=== PATIENT | male | born 1980 | race Caucasian/White ===

== ENCOUNTER 2020-10-27 17:10 | Inpatient (IN) ==
[2020-10-27 18:57] LABS: Albumin Level 4.3 gm/dl (3.4-5.0); BUN Creatinine Ratio 23.3 (10-20); Calcium 9.6 mg/dl (8.5-10.1); Est GFR (African American) 135.6 ml/min; Globulin 4.3 gm/dl (2.5-4.0); Total Protein 8.6 gm/dl (6.4-8.2)
[2020-10-27] MEDS ORDERED: FAMOTIDINE 20MG IV PUSH 20 MG/5 ML SYR IV STA (19:42)
[2020-10-27] MEDS ORDERED: SODIUM CHLORIDE 0.9% 1000ML 2,000 ML IV ONE (19:42)
[2020-10-27] MEDS ORDERED: ACETAMINOPHEN 1,000 MG/100 ML VIAL IV STA (19:42)
[2020-10-27] MEDS ORDERED: diphenhydrAMINE 50 MG/ML VIAL IV STA (19:44)
[2020-10-27] MEDS ORDERED: DICYCLOMINE HCL 10 MG/ML 2 ML AMP/VIAL IM ONE (19:44)
[2020-10-27] MEDS ORDERED: METOCLOPRAMIDE HCL INJ 5 MG/ML 2 ML VIAL IV STA (19:44)
[2020-10-27 20:39] LABS: Eosinophils # (auto) 0.01 K/uL (0-0.5); Eosinophils % (auto) 0.1 %; Hematocrit (blood only) 49.8 % (42-52); Immature Granulocytes # (auto) 0.02 K/uL (0.00-0.02); Immature Granulocytes % (auto) 0.1 %; Lymphocytes # (auto) 1.12 K/uL (1.2-3.4); Mean Corpuscular Hemoglobin 31.3 pg (25-34); Mean Corpuscular Hgb Conc 36.1 g/dL (32-36); Mean Corpuscular Volume 86.6 fL (80-100); Mean Platelet Volume 9.7 fL (7.4-10.4); Monocytes # (auto) 0.73 K/uL (0.11-0.59); Monocytes % (auto) 5.2 %; Neutrophils # (auto) 12.14 K/uL (1.4-6.5); Neutrophils % (auto) 86.6 %; Platelet Count 325 K/uL (130-400); RDW Standard Deviation 41.1 fL (36.4-46.3); Red Blood Count 5.75 M/uL (4.7-6.1); White Blood Count 14.02 K/uL (4.8-10.8)
[2020-10-27] MEDS ORDERED: OPTIRAY 300 100mL IV ONE (20:42)
--- NOTE | 2020-10-27 21:10 | CT Scan Report ---
CT SCAN OF THE ABDOMEN AND PELVIS WITH IV CONTRAST CLINICAL HISTORY: Generalized abdominal pain. COMPARISON STUDY: Abdominal CT dated 02/04/2007. TECHNIQUE: Following the IV administration of 88 cc of Optiray 300, CT scan of the abdomen and pelvi s is performed from the lung bases to the proximal femora. Images are reviewed in the axial, sagittal , and coronal planes. IV contrast was administered without complication. A dose lowering technique wa s utilized adhering to the principles of ALARA. Examination is degraded by streak artifact from spina l rods. CT DOSE: 324.77 mGy.cm FINDINGS: Lung bases: The heart is normal in size and without pericardial effusion. There are bibasilar airspac e opacities. No pleural effusion is seen. Liver: The contrast-enhanced liver is normal in size, contour, and attenuation. There is no intrahepa tic biliary ductal dilatation. The hepatic veins and portal veins are patent. Gallbladder: Unremarkable. Spleen: Normal in size and attenuation. Pancreas: Unremarkable. Adrenal glands: Unremarkable. Kidneys: The contrast enhanced kidneys are normal in size and without hydronephrosis. The kidneys enh ance symmetrically. Suspect a punctate nonobstructing right renal calculus. This is not well assessed due to streak artifact. Abdominal vasculature: The abdominal aorta is normal in course and caliber. Bowel: There are distended and fluid-filled loops of jejunum and proximal ileum identified in the pel vis. These measure up to 3.4 cm diameter. The distal ileum and colon are decompressed, and a complex transition point is suggested in the ventral lower abdomen/pelvis on image #257. The appearance is co nsistent with a high-grade bowel obstruction. There is fecalization of the small bowel above the luna sition point. There are several thick-walled and hyperemic small bowel loops identified in the pelvis . There is surrounding inflammatory change and interloop fluid. No pneumatosis intestinalis or portal venous gas is identified. The appendix is normal as visualized. Peritoneum: There is no intraperitoneal free air identified. Trace ascites is noted in the pelvis. Lymphadenopathy: None. Pelvic viscera: The bladder, prostate, and seminal vesicles are normal as visualized. Skeletal structures: There is thoracolumbar scoliosis with spinal rods in place. No lytic or blastic lesions are seen. IMPRESSION: 1. Findings are consistent with a high-grade small bowel obstruction with a complex transition point suggested in the ventral lower abdomen/pelvis. This may be on the basis of adhesions. Surgical consul tation is advised. 2. There are fecalized loops of small bowel above the transition point, as well as several thick-wall ed and hyperemic loops of small bowel with surrounding inflammation. These loops may be at risk for i schemia. 3. There is no intraperitoneal free air. No pneumatosis intestinalis or portal venous gas is identifi ed. 4. Interloop fluid and a small volume of pelvic ascites are likely reactive. 5. Additional findings as above. ACT 112: Negative or not required by law. Electronically signed by: Vijay Cazares M.D. 10/27/2020 9:09 PM
--- NOTE | 2020-10-27 21:49 | Emergency Department Note ---
Impression & Plan Small bowel obstruction, Leukocytosis, Nausea & vomiting, History of abdominal surgery ED Provider Note NAME: JACIEL CASE AGE: 40 SEX: M ARRIVES VIA: Walk-In INFORMANT: Patient, ED PROVIDER(S): Modesto Hopkins MD CHIEF COMPLAINT: abdominal pain, n/v PLAN: Disposition: Admit MEDICAL DECISION MAKING: The patient is a pleasant 40-year-old gentleman with a past medical history of bowel obstruction with surgical correction, chronic back pain on disability who presents to the emergency department accompanied by his mother virginia ferrera for worsening abdominal pain and persistent nausea and vomiting since yesterday. Patient reports he has been unable to keep anything down today and has had needed to induce vomiting to help relieve some of his nausea and pain. He reports having a normal bowel movement yesterday but has not moved his bowels since then. He last ate peanuts yesterday afternoon prior to onset of symptoms. Denies any recent fevers, chills, cough, congestion, urinary symptoms. He denies any known COVID-19 exposures. On arrival the patient is uncomfortable but no acute distress, afebrile with heart rate in the 110s and vital signs otherwise stable. On exam the patient does have moderate tenderness and fullness in the mid abdomen. There is no guarding or rebound. WBC 14K, nonspecific. H/H and platelets within normal limits. Chemistry without metabolic acidosis. BUN/creatinine> 20 consistent with patient's clinical dry appearance. LFTs are unremarkable. Lipase within normal limits. Covid-[address] abdomen pelvis was performed and demonstrates findings consistent with bowel obstruction and suggestive of high-grade bowel obstruction. I did review the findings with the patient his mother at the bedside. They did agree to proceed with plan for NG tube and surgery consultation. Case was discussed with general surgeryEnio PAC with Dr. Grijalva, general surgery on-call. Upon their evaluation at the bedside they will admit the patient for further management. Triage Nursing notes reviewed and agree them. Prior medical records reviewed Vital Signs: reviewed and remarkable for tachycardia. Differential diagnosis: Appendicitis, testicular torsion, infections, diverticulitis, UTI, obstruction, mesenteric ischemia, aortic pathology, inflammatory bowel disease, renal colic, PUD, pancreatitis, biliary pathology, hernia, volvulus, constipation, as well as other pathologies. ER treatment provided: See below. Diagnostics interpreted by me: Cardiac Monitoring: An order for continuous cardiac monitoring was placed and demonstrated Sinus tachycardia, 117 bpm, no ectopy. Laboratory studies: See below Imaging studies: See below Consultation(s): Enio Esteban PAC with Dr. Grijalva, general surgery on-call HPI: The patient is a pleasant 40-year-old gentleman with a past medical history of bowel obstruction with surgical correction, chronic back pain on disability who presents to the emergency department accompanied by his mother concern for worsening abdominal pain and persistent nausea and vomiting since yesterday. Patient reports he has been unable to keep anything down today and has had needed to induce vomiting to help relieve some of his nausea and pain. He reports having a normal bowel movement yesterday but has not moved his bowels since then. He last ate peanuts yesterday afternoon prior to onset of symptoms. Denies any recent fevers, chills, cough, congestion, urinary symptoms. He denies any known COVID-19 exposures. ROS: See above HPI for pertinent positives & negatives. A total of 10 systems reviewed and were otherwise negative. PAST MEDICAL HISTORY:See Below PAST SURGICAL HISTORY:See Below FAMILY HISTORY:See Below SOCIAL HISTORY:See Below HOME MEDICATIONS:See Below ALLERGIES:See Below VITALS:See Below PHYSICAL EXAMINATION: GENERAL: Awake, alert, uncomfortable-appearing, in no distress HENT: Normocephalic, atraumatic. Oropharynx with dry mucous membranes and otherwise unremarkable. EYES: Normal conjunctiva. Sclera non-icteric. NECK: Supple. No nuchal rigidity. FROM. No JVD. RESPIRATORY: Clear to auscultation. CARDIAC: Tachycardic rate, normal rhythm. Extremities warm and well perfused. Pulses equal. ABDOMEN: Moderate tenderness and fullness in the mid abdomen. No guarding or rebound. RECTAL: Deferred. MUSCULOSKELETAL: Chest examination reveals no tenderness. The back is symmetrical on inspection without obvious abnormality. There is no CVA tenderness to palpation. No joint edema. LOWER EXTREMITIES: Calves are equal size bilaterally and non-tender. No edema. No discoloration. NEURO: Normal sensorium. No sensory or motor deficits noted. SKIN: No rash or jaundice noted. ED COURSE: Critical Care: I have personally spent greater than 35 minutes of critical care time in the direct management of this patient. This includes bedside care, interpretation of diagnostic studies, and testing, discussion with consultants, patient, and family members, and other required patient management activities. This 35 minutes is in excess of all separately billable procedures. Modesto Hopkins MD Past Med/Surg History Medical History Chronic back pain History of small bowel obstruction As a per patient and his mother. Surgical History H/O abdominal surgery Social History Smoking Status: Current every day smoker Cigarettes Per Day: 18; Hx Alcohol Use: Yes Hx Substance Use: No Preferred Language: Swedish Communication Ability: Effective Metal Solderer Required: No Beliefs That Will Affect Care: None Current Living Situation: Alone Other Information That Helps Us Care for You: No Feels Safe at Home: Yes Safety Concerns: Feels Safe At This Time Assistive Devices: None Allergies Allergies Allergy/AdvReac Type Severity Reaction Status Date / Time morphine AdvReac Intermediate HALLUCINATI Verified 10/27/20 19:42 ONS Home Meds Home Medications Medication Instructions Recorded Confirmed ibuprofen 400 mg PO Q6H PRN 10/27/20 10/27/20 multivit with min-folic acid 1 tab PO DAILY 10/27/20 10/27/20 [Multivitamin Gummies] Results & Data (ED) Vital Signs Vital Signs - 24 hr 10/27/20 17:11 Temperature 36.5 C Temperature Source Temporal Artery Scan Pulse Rate 117 H Respiratory Rate 18 Respiratory Depth Normal Blood Pressure 147/99 H Blood Pressure Mean 115 Pulse Oximetry 99 Oxygen Delivery Method Room Air Sepsis Recent Fever Within 48 Hours No Sepsis New/Unexplained Change in Mental Status N/A Sepsis Action Taken by Nursing No Action Required Laboratory Data Attestation: I reviewed the patient's lab results. Result diagrams: 10/27/20 20:13 10/27/20 18:27 Lab Results 10/27/20 10/27/20 10/27/20 Range/Units 18:27 20:13 21:23 WBC 14.02 H (4.8-10.8) K/uL RBC 5.75 (4.7-6.1) M/uL Hgb 18.0 (14.0-18.0) g/dL Hct 49.8 (42-52) % MCV 86.6 (80-100) fL MCH 31.3 (25-34) pg MCHC 36.1 H (32-36) g/dL RDW Std Deviation 41.1 (36.4-46.3) fL RDW Coeff of Vonnie 13.0 (11.5-14.5) % Plt Count 325 (130-400) K/uL MPV 9.7 (7.4-10.4) fL Immature Gran % (Auto) 0.1 % Neut % (Auto) 86.6 % Lymph % (Auto) 8.0 % [place] % (Auto) 5.2 % Eos % (Auto) 0.1 % Baso % (Auto) 0.0 % Neut # (Auto) 12.14 H (1.4-6.5) K/uL Lymph # (Auto) 1.12 L (1.2-3.4) K/uL [place] # (Auto) 0.73 H (0.11-0.59) K/uL Eos # (Auto) 0.01 (0-0.5) K/uL Baso # (Auto) 0.00 (0-0.2) K/uL Immature Gran # (Auto) 0.02 (0.00-0.02) K/uL Sodium 134 L (136-145) mmol/L Potassium (3.5-5.1) mmol/L Chloride 101 (98-107) mmol/L Carbon Dioxide 24 (21-32) mmol/L Anion Gap 9.0 (3-11) BUN 17 (7-18) mg/dl Creatinine 0.74 (0.6-1.4) mg/dl Est Cr Clr Drug Dosing 134.0 ml/min Est GFR ( Amer) 135.6 ml/min Est GFR (Non-Af Amer) 117.0 ml/min BUN/Creatinine Ratio 23.3 H (10-20) Glucose 107 H (70-99) mg/dl Calcium 9.6 (8.5-10.1) mg/dl Total Bilirubin 1.0 (0.2-1) mg/dl AST (15-37) U/L ALT 37 (12-78) U/L Alkaline Phosphatase 104 (45-117) U/L Total Protein 8.6 H (6.4-8.2) gm/dl Albumin 4.3 (3.4-5.0) gm/dl Globulin 4.3 H (2.5-4.0) gm/dl Albumin/Globulin Ratio 1.0 (0.9-2) Lipase 73 (73-393) U/L COVID-19 Eval Order Covid19 at [facility] SARS-CoV-2 (PCR) (Negative) 10/27/20 Range/Units 21:23 WBC (4.8-10.8) K/uL RBC (4.7-6.1) M/uL Hgb (14.0-18.0) g/dL Hct (42-52) % MCV (80-100) fL MCH (25-34) pg MCHC (32-36) g/dL RDW Std Deviation (36.4-46.3) fL RDW Coeff of Vonnie (11.5-14.5) % Plt Count (130-400) K/uL MPV (7.4-10.4) fL Immature Gran % (Auto) % Neut % (Auto) % Lymph % (Auto) % [place] % (Auto) % Eos % (Auto) % Baso % (Auto) % Neut # (Auto) (1.4-6.5) K/uL Lymph # (Auto) (1.2-3.4) K/uL [place] # (Auto) (0.11-0.59) K/uL Eos # (Auto) (0-0.5) K/uL Baso # (Auto) (0-0.2) K/uL Immature Gran # (Auto) (0.00-0.02) K/uL Sodium (136-145) mmol/L Potassium (3.5-5.1) mmol/L Chloride (98-107) mmol/L Carbon Dioxide (21-32) mmol/L Anion Gap (3-11) BUN (7-18) mg/dl Creatinine (0.6-1.4) mg/dl Est Cr Clr Drug Dosing ml/min Est GFR ( Amer) ml/min Est GFR (Non-Af Amer) ml/min BUN/Creatinine Ratio (10-20) Glucose (70-99) mg/dl Calcium (8.5-10.1) mg/dl Total Bilirubin (0.2-1) mg/dl AST (15-37) U/L ALT (12-78) U/L Alkaline Phosphatase (45-117) U/L Total Protein (6.4-8.2) gm/dl Albumin (3.4-5.0) gm/dl Globulin (2.5-4.0) gm/dl Albumin/Globulin Ratio (0.9-2) Lipase (73-393) U/L COVID-19 Eval Order SARS-CoV-2 (PCR) NEGATIVE (Negative) Administered Medications Lactated Ringer's (Lr) 1,000 mls @ 125 mls/hr IV .Q8H ALIDA Stop: 11/26/20 22:29 Last Admin: 10/28/20 00:31 Dose: 125 mls/hr Documented by: [id number] Ondansetron HCl (Ondansetron Inj 2 Mg/Ml 2 Ml Vial) 4 mg IV Q6H PRN PRN Reason: Nausea And Vomiting Stop: 11/26/20 22:19 Last Admin: 10/27/20 23:27 Dose: 4 mg Documented by: [id number] Discontinued Medications Dicyclomine HCl (Dicyclomine Hcl 10 Mg/Ml 2 Ml Amp/Vial) 20 mg IM NOW ONE Stop: 10/27/20 19:45 Last Admin: 10/27/20 20:08 Dose: 20 mg Documented by: [id number] Diphenhydramine HCl (Diphenhydramine 50 Mg/Ml Vial) 25 mg IV NOW STA Stop: 10/27/20 19:45 Last Admin: 10/27/20 20:08 Dose: 25 mg Documented by: [id number] Sodium Chloride (Nss 1000ml) 2,000 mls @ 999 mls/hr IV .Q2H1M ONE Stop: 10/27/20 21:42 Last Infusion: 10/28/20 00:25 Dose: 0 mls/hr Documented by: [id number] Admin: 10/27/20 20:08 Dose: 999 mls/hr Documented by: [id number] Acetaminophen (Ofirmev) 1,000 mg in 100 mls @ 400 mls/hr IV NOW STA Stop: 10/27/20 19:56 Last Infusion: 10/27/20 20:22 Dose: 0 mls/hr Documented by: [id number] Admin: 10/27/20 20:07 Dose: 400 mls/hr Documented by: [id number] Famotidine (Pepcid 20mg Iv Push) 20 mg in 5 mls @ 2.5 mls/min IV NOW STA Stop: 10/27/20 19:43 Last Admin: 10/27/20 20:08 Dose: 2.5 mls/min Documented by: [id number] Ioversol (Optiray 300 100ml) 89 ml IV ONCE ONE Stop: 10/27/20 20:43 Last Admin: 10/27/20 20:43 Dose: 100 ml Documented by: [id number] Metoclopramide HCl (Metoclopramide Hcl Inj 5 Mg/Ml 2 Ml Vial) 10 mg IV NOW STA Stop: 10/27/20 19:45 Last Admin: 10/27/20 20:08 Dose: 10 mg Documented by: [id number] Imaging Data Radiologist's Impression: Abdomen/Pelvis CT 10/27/20 19:45 CT SCAN OF THE ABDOMEN AND PELVIS WITH IV CONTRAST CLINICAL HISTORY: Generalized abdominal pain. COMPARISON STUDY: Abdominal CT dated 02/04/2007. TECHNIQUE: Following the IV administration of 88 cc of Optiray 300, CT scan of the abdomen and pelvis is performed from the lung bases to the proximal femora. Images are reviewed in the axial, sagittal, and coronal planes. IV contrast was administered without complication. A dose lowering technique was utilized adhering to the principles of ALARA. Examination is degraded by streak artifact from spinal rods. CT DOSE: 324.77 mGy.cm FINDINGS: Lung bases: The heart is normal in size and without pericardial effusion. There are bibasilar airspace opacities. No pleural effusion is seen. Liver: The contrast-enhanced liver is normal in size, contour, and attenuation. There is no intrahepatic biliary ductal dilatation. The hepatic veins and portal veins are patent. Gallbladder: Unremarkable. Spleen: Normal in size and attenuation. Pancreas: Unremarkable. Adrenal glands: Unremarkable. Kidneys: The contrast enhanced kidneys are normal in size and without hydronephrosis. The kidneys enhance symmetrically. Suspect a punctate nonobstructing right renal calculus. This is not well assessed due to streak artifact. Abdominal vasculature: The abdominal aorta is normal in course and caliber. Bowel: There are distended and fluid-filled loops of jejunum and proximal ileum identified in the pelvis. These measure up to 3.4 cm diameter. The distal ileum and colon are decompressed, and a complex transition point is suggested in the ventral lower abdomen/pelvis on image #257. The appearance is consistent with a high-grade bowel obstruction. There is fecalization of the small bowel above the transition point. There are several thick-walled and hyperemic small bowel loops identified in the pelvis. There is surrounding inflammatory change and interloop fluid. No pneumatosis intestinalis or portal venous gas is identified. The appendix is normal as visualized. Peritoneum: There is no intraperitoneal free air identified. Trace ascites is noted in the pelvis. Lymphadenopathy: None. Pelvic viscera: The bladder, prostate, and seminal vesicles are normal as visualized. Skeletal structures: There is thoracolumbar scoliosis with spinal rods in place. No lytic or blastic lesions are seen. IMPRESSION: 1. Findings are consistent with a high-grade small bowel obstruction with a complex transition point suggested in the ventral lower abdomen/pelvis. This may be on the basis of adhesions. Surgical consultation is advised. 2. There are fecalized loops of small bowel above the transition point, as well as several thick-walled and hyperemic loops of small bowel with surrounding inflammation. These loops may be at risk for ischemia. 3. There is no intraperitoneal free air. No pneumatosis intestinalis or portal venous gas is identified. 4. Interloop fluid and a small volume of pelvic ascites are likely reactive. 5. Additional findings as above. ACT 112: Negative or not required by law. Electronically signed by: Vijay Cazares M.D. 10/27/2020 9:09 PM Discharge Plan Visit Data Chief Complaint: Abdominal Pain Stated Complaint: ABDOMINAL PAIN ED Provider: Modesto Hopkins Discharge Problem: Small bowel obstruction, Leukocytosis, Nausea & vomiting, History of abdominal surgery Patient Disposition: Admitted As Inpatient Discharge Instructions Interventions: ED Discharge Assessment Last Done: 10/27/20 23:16 Discharge Problem: Leukocytosis Qualifiers: Leukocytosis type: unspecified Qualified Code(s): D72.829 - Elevated white blood cell count, unspecified Nausea & vomiting Qualifiers: Vomiting type: unspecified Vomiting Intractability: intractable Qualified Code(s): R11.2 - Nausea with vomiting, unspecified
--- NOTE | 2020-10-27 22:16 | History & Physical Report ---
Date of Service October 27, 2020 Assessment & Plan (1) Small bowel obstruction: The patient has a small bowel obstruction. I suspect the small bowel obstruction is likely on the basis of adhesions from previous surgery. Due to his clinical presentation and imaging he will be admitted to the hospital and we will proceed as follows: Patient will be kept n.p.o. We will provide IV fluid for hydration We will provide antiemetics We will provide analgesics Place an NG tube in place this to low continuous suction We will check a KUB in the morning We will follow serial labs We had a lengthy discussion with the patient at the bedside outlining conservative treatment for small bowel obstruction with the measures noted above. We have discussed with him that if his clinical status deteriorates and conservative measures fail he may require surgical intervention. He did express his understanding and had all of his questions answered For the present time we will use SCDs for DVT prevention. Hold on chemical means until we are certain patient will not require operative intervention. History of Present Illness Chief Complaint: Abdominal pain, nausea and vomiting Primary Care Provider: NO PCP Is a 40-year-old male who presented [facility] emergency department secondary to periumbilical abdominal pain along with nausea and vomiting that began approximate 24 hours ago. Patient notes that he had a history of small bowel obstruction as an that required resection of a portion of the small bowel. He notes he has not had any other issues concerning this problem until his current presentation. Patient symptoms began approximate 24-hours ago as stated above. Patient notes that he has generalized achy abdominal pain in the periumbilical area that is alleviated when he self induces vomiting. He does note that the pain seems to be somewhat worse when he lies down and sits up. He notes that for the past 24 hours he has only had 1 small bowel movement and is not passing any flatus. He has not had any meaningful oral intake since yesterday. In the emergency department patient had labs and imaging which were independently reviewed by myself. CT scan of the abdomen showed concern for high-grade bowel obstruction with fecalization of material in the small bowel proximal to this obstruction. There is no evidence of free air, pneumatosis intestinalis, or portal venous gas. CBC reveals white blood cell count was 14, hemoglobin, hematocrit, and platelet count are all within normal range. Ch emistry profile revealed his sodium is 134. Potassium level could not be ascertained as the specimen was hemolyzed. His BUN and creatinine were noted to be within normal range. A Covid test has been ordered and is pending. At the time of my exam the patient was resting in bed he was in no distress Allergies Allergy/AdvReac Type Severity Reaction Status Date / Time morphine AdvReac Intermediate HALLUCINATI Verified 10/27/20 19:42 ONS Home Medications Medication Instructions Recorded Confirmed Type ibuprofen 400 mg PO Q6H PRN 10/27/20 10/27/20 History multivit with min-folic acid 1 tab PO DAILY 10/27/20 10/27/20 History [Multivitamin Gummies] Past Med/Surg History Medical History Chronic back pain History of small bowel obstruction As a per patient and his mother. Surgical History H/O abdominal surgery Social History Smoking Status: Current every day smoker Feels Safe at Home: Yes Review of Systems Constitutional: no fever and no chills Eyes: no diplopia Ear, Nose, Mouth, Throat: no ear pain Respiratory: no cough and no dyspnea Cardiovascular: no chest pain Gastrointestinal: + nausea, + vomiting and + constipation; no abdominal pain Genitourinary: no dysuria Musculoskeletal: no back pain Integumentary: no rash Neurologic: no localized weakness Physical Exam Constitutional: well developed and well nourished; no acute distress Eyes: no conjunctival abnormality ENMT: Ears: no hearing impairment Neck: trachea midline Respiratory: normal respiratory effort, lungs clear to auscultation Cardiovascular: Rate/Rhythm: regular rate and regular rhythm Gastrointestinal (Abdomen): Administer soft without significant distention or tympany to percussion. Patient does have some mild pain with palpation greatest in the periumbilical area. No rebound tenderness or guarding. There are no palpable hernias. Patient does have a well-healed midline incision near his umbilicus. Musculoskeletal: No calf tenderness noted. There is digital clubbing noted of his fingers. Skin: no rashes, warm and dry Neurologic: moves all extremities Psychiatric: Orientation: alert and oriented x 3 Affect: + flat affect Results & Data Results & Data (MN) Vital Signs (Past 12 Hours) Vital Signs Temp Pulse Resp BP Pulse Ox 10/27/20 17:11 36.5 C 117 H 18 147/99 H 99 Supervising Physician Co-Signing Physician Notes Patient seen and examined, labs and imaging reviewed, agree with above. 40-year-old male with history of laparotomy and bowel resection as a for obstruction, presents to the emergency department with 24 hours of abdominal pain and vomiting. No prior episodes. On exam he is afebrile with stable vitals. His abdomen is soft, moderately distended, mildly tender to palpation with no guarding or rebound. He does have a surgical scar in the left paramedian position. Labs with WBC 14, otherwise unremarkable. CT shows bowel obstruction with some thickened loops of bowel, fecalization, and some interloop edema consistent with a small bowel obstruction. Small bowel obstruction We will proceed with nonoperative management Patient will be admitted to the MedSurg [facility], NG tube placed Repeat KUB in the morning Diagnosis and plan of care discussed the patient, all questions are answered, the patient expressed understanding agrees the plan of care as stated PG Care Time/CCT Total # of Minutes Spent Total Time Spent with Patient: Total time spent is greater than 50% in coordination of care (as documented) at patient's floor/unit and/or counseling patient: Coding Level of Care Code 81791 Initial Inpt Care Lvl 3 Diagnoses Small bowel obstruction K56.609
[2020-10-27] MEDS ORDERED: ONDANSETRON INJ 2 MG/ML 2 ML VIAL IV PRN (22:20)
[2020-10-28] MEDS ORDERED: ACETAMINOPHEN 1,000 MG/100 ML VIAL IV PRN (00:24)
[2020-10-28] MEDS: LACTATED RINGER'S 1,000 ML IV SCH ×3 (00:31→16:51)
[2020-10-28 06:19] LABS: Eosinophils # (auto) 0.03 K/uL (0-0.5); Eosinophils % (auto) 0.3 %; Hematocrit (blood only) 47.8 % (42-52); Hemoglobin 17.1 g/dL (14.0-18.0); Immature Granulocytes # (auto) 0.02 K/uL (0.00-0.02); Immature Granulocytes % (auto) 0.2 %; Lymphocytes # (auto) 1.23 K/uL (1.2-3.4); Lymphocytes % (auto) 10.7 %; Mean Corpuscular Hemoglobin 30.8 pg (25-34); Mean Corpuscular Volume 86.1 fL (80-100); Mean Platelet Volume 9.6 fL (7.4-10.4); Monocytes # (auto) 0.97 K/uL (0.11-0.59); Monocytes % (auto) 8.4 %; Neutrophils # (auto) 9.28 K/uL (1.4-6.5); Neutrophils % (auto) 80.4 %; Platelet Count 329 K/uL (130-400); RDW Standard Deviation 41.2 fL (36.4-46.3); Red Blood Count 5.55 M/uL (4.7-6.1); White Blood Count 11.53 K/uL (4.8-10.8)
[2020-10-28 06:23] LABS: Mean Corpuscular Hgb Conc 35.8 g/dL (32-36)
[2020-10-28 06:36] LABS: BUN Creatinine Ratio 23.1 (10-20); Calcium 8.6 mg/dl (8.5-10.1); Creatinine Clr Calc Pharmacy 148.8 ml/min; Est GFR (African American) 142.1 ml/min; Est GFR (Non-African American) 122.6 ml/min; Potassium 3.9 mmol/L (3.5-5.1)
--- NOTE | 2020-10-28 07:12 | XRay Report ---
KUB HISTORY: Follow-up study in a patient with small bowel obstruction sbo COMPARISON: KUB 10/27/2020, CT abdomen pelvis 10/27/2020 FINDINGS: Distal tip of enteric tube is projected superiorly within the gastric fundus. There are per sistent dilated air-filled loops of small bowel measuring up to approximately 3 cm. Air is also noted within the large bowel. Contrast within the urinary bladder lumen. Extensive thoracolumbar spinal fu kaushal with lumbar levoscoliosis. No urolith or pneumoperitoneum identified. IMPRESSION: 1. Distal tip of enteric tube projects superiorly within the region of the gastric fundus. 2. Persistent small bowel obstruction without pneumoperitoneum. ACT 112: Negative or not required by law. The above report was generated using voice recognition software. It may contain grammatical, syntax o r spelling errors. Electronically signed by: Pavan Gonzalez M.D. 10/28/2020 7:11 AM
--- NOTE | 2020-10-28 07:12 | XRay Report ---
KUB HISTORY: NG tube placement COMPARISON: Abdomen and pelvis CT 10/27/2020. FINDINGS: A nasogastric tube terminates in the fundus of the stomach. Contrast within the renal colle cting systems from the recent CT examination. Dilated gas-filled loop of small bowel within the midab domen consistent with the patient's known small bowel obstruction. This measures up to 3.2 cm in diam eter. This is similar to the prior study. Thoracolumbar spinal rods are again noted. No renal calcul i. No ureteral calculi. No pneumoperitoneum or pneumatosis. IMPRESSION: 1. Nasogastric tube terminates in the fundus of the stomach. 2. Persistent small bowel structure and pattern. ACT 112: Negative or not required by law. Electronically signed by: Misbah Sewell M.D. 10/28/2020 7:11 AM
--- NOTE | 2020-10-28 07:50 | Surgery Progress Note ---
Date of Service October 28, 2020 Assessment & Plan (1) Small bowel obstruction: Patient here with SBO, h/o bowel resection as an infant WBC 11.5, Cr: 0.66, VSS Abdomen soft, some discomfort noted to palpation in mid and L side of abdomen Remains with some abdominal discomfort and mild nausea, but says it's overall improved since yesterday NGT 200cc document Plan to keep NGT in place while awaiting return of bowel function and ongoing improvement in pt's symptoms Admission and Anticipated Discharge Date Admission Date: October 27, 2020 Supervising Physician Co-Signing Physician Notes Patient seen and examined, x-ray reviewed, agree with above. 40-year-old male admitted with high-grade small bowel obstruction, proceeding with conservative management. Since having NG tube placed he states he has less abdominal distention and discomfort. No more vomiting. He has not passed flatus or had a bowel movement yet. On exam he is afebrile with stable vitals. Abdomen is soft, less tender than yesterday, slightly less distended. KUB shows persistent small bowel obstruction. We will continue with nonoperative management at this time. We will consider oral contrasted study in the next few days if he does not show signs of improvement. Subjective Patient says he is feeling okay. Still has some abdominal discomfort and some mild nausea, but says it's improved from yesterday. No flatus/BM at this time. Physical Exam Physical Exam: awake/alert Constitutional: no acute distress Respiratory: normal respiratory effort Gastrointestinal (Abdomen): Percussion/Palpation: + abdomen tender (mild discomfort to palpation in the mid abdomen and left sided abd) and abdomen soft NGT with clear/lightly blood tinged output (200cc) Results & Data ([facility]) Vital Signs (Past 12 Hours) Vital Signs Temp Pulse Resp BP Pulse Ox 10/28/20 00:15 36.7 C 96 H 16 159/97 H 98 10/27/20 22:53 104 H 16 143/86 H 98 PG Care Time/CCT Total # of Minutes Spent Total Time Spent with Patient: Total time spent is greater than 50% in coordination of care (as documented) at patient's floor/unit and/or counseling patient: Coding Level of Care Code 91385 Subseq Hosp Care Lvl 1 Diagnoses Small bowel obstruction K56.609
[2020-10-29] MEDS: LACTATED RINGER'S 1,000 ML IV SCH ×4 (00:39→23:20)
--- NOTE | 2020-10-29 08:47 | XRay Report ---
KUB HISTORY: eval bowel gas pattern for small bowel obstruction. NG tube placement. COMPARISON: KUB 10/28/2020. FINDINGS: The nasogastric tube is looped within the stomach with the tip terminating at the gastric f undus. No change in the mildly dilated gas-filled loops of small bowel within the midabdomen. These m easure up to 3.8 cm in diameter. Nondistended colon. Mild S-shaped scoliosis of the thoracolumbar spi ne with associated spinal rods. Stable punctate right renal calculus. No pneumoperitoneum or pneumat osis. IMPRESSION: 1. No change in position of the nasogastric tube which terminates at the fundus of the stomach. 2. Persistent small bowel obstruction pattern. ACT 112: Negative or not required by law. Electronically signed by: Misbah Sewell M.D. 10/29/2020 8:46 AM
--- NOTE | 2020-10-29 10:36 | Surgery Progress Note ---
Date of Service October 29, 2020 Assessment & Plan (1) Small bowel obstruction: Patient here with SBO, h/o bowel resection as an infant Patient feeling similar to yesterday, mild abdominal discomfort and discomfort related to NGT KUB this AM revealed persistent SBO NGT documented 250cc/24hours He is starting to pass some flatus. We will keep NGT in for today while awaiting further return of bowel function If no continued progress we may consider a contrast study in the next 24 hours We offered patient a nicotine patch for his smoking withdrawal, but he declined at this time Admission and Anticipated Discharge Date Admission Date: October 27, 2020 Supervising Physician Co-Signing Physician Notes Patient seen and examined, labs and image reviewed, agree with above. 40-year-old male with history of bowel surgery as a now with small bowel obstruction likely secondary to adhesions. Feels slightly better today than yesterday, and much better than he did upon admission. He has passed a very small amount of flatus. He does feel hungry. The pain and tenderness he had on admission are improving. On exam he is afebrile with stable vitals. His abdomen is soft, mildly distended, mildly tender to palpation which is improved from yesterday. His KUB shows a persistent small bowel obstruction, however clinically he is improving. We will continue to manage nonoperatively. If he fails to make progress over the next few days we will order a contrasted study to further evaluate. Subjective Patient says he is feeling about the same as yesterday. Mild abdominal discomfort, but this is improved since admission. When asked if he is having any nausea, he says yes, but believes it's related to the NGT. He passed a small amount of flatus this AM. No BM yet. He says he is starting to feel a little agitated because he wants so smoke a cigarette. Physical Exam Physical Exam: awake/alert Constitutional: no acute distress Gastrointestinal (Abdomen): Inspection/Auscultation: + abdomen distended (softly distended) Percussion/Palpation: + abdomen tender (mild discomfort to palpation over mid and left mid abdomen) and abdomen soft Results & Data ([facility]) Vital Signs (Past 12 Hours) Vital Signs Temp Pulse Resp BP BP Pulse Ox 10/29/20 07:16 36.8 C 65 16 136/77 99 10/28/20 23:16 37.2 C 78 15 154/77 H 98 PG Care Time/CCT Total # of Minutes Spent Total Time Spent with Patient: Total time spent is greater than 50% in coordination of care (as documented) at patient's floor/unit and/or counseling patient: Coding Level of Care Code 00983 Subseq Hosp Care Lvl 1 Diagnoses Small bowel obstruction K56.609
[2020-10-30] MEDS: LACTATED RINGER'S 1,000 ML IV SCH (03:35)
[2020-10-30 06:21] LABS: Basophils # (auto) 0.01 K/uL (0-0.2); Basophils % (auto) 0.2 %; Eosinophils # (auto) 0.07 K/uL (0-0.5); Eosinophils % (auto) 1.1 %; Hematocrit (blood only) 40.1 % (42-52); Hemoglobin 14.2 g/dL (14.0-18.0); Immature Granulocytes # (auto) 0.01 K/uL (0.00-0.02); Immature Granulocytes % (auto) 0.2 %; Lymphocytes # (auto) 1.91 K/uL (1.2-3.4); Lymphocytes % (auto) 30.5 %; Mean Corpuscular Hgb Conc 35.4 g/dL (32-36); Mean Corpuscular Volume 87.6 fL (80-100); Mean Platelet Volume 9.4 fL (7.4-10.4); Monocytes # (auto) 0.69 K/uL (0.11-0.59); Neutrophils # (auto) 3.58 K/uL (1.4-6.5); Platelet Count 285 K/uL (130-400); RDW Coefficient of Variation 12.8 % (11.5-14.5); RDW Standard Deviation 41.5 fL (36.4-46.3); Red Blood Count 4.58 M/uL (4.7-6.1); White Blood Count 6.27 K/uL (4.8-10.8)
[2020-10-30 06:47] LABS: BUN Creatinine Ratio 32.8 (10-20); Blood Urea Nitrogen 16 mg/dl (7-18); Calcium 8.3 mg/dl (8.5-10.1); Carbon Dioxide 26 mmol/L (21-32); Chloride 105 mmol/L (98-107); Creatinine Clr Calc Pharmacy 208.9 ml/min; Est GFR (African American) > 150.0 ml/min; Glucose 59 mg/dl (70-99); Potassium 3.5 mmol/L (3.5-5.1); Sodium 138 mmol/L (136-145)
--- NOTE | 2020-10-30 07:46 | Surgery Progress Note ---
Date of Service October 30, 2020 Assessment & Plan (1) Small bowel obstruction: Patient here with SBO, h/o bowel resection as an infant Patient passing more flatus and reports having a BM this AM His overall abdominal symptoms are improving NGT with minimal output Will evaluate KUB this AM and hope to either perform clamp trial or try to remove and start clears Admission and Anticipated Discharge Date Admission Date: October 27, 2020 Supervising Physician Co-Signing Physician Notes Patient seen and examined, imaging reviewed, agree with above. Admitted for small bowel obstruction likely secondary to adhesions from laparotomy. He reports a bowel movement that was formed but soft this morning. He is also passing flatus. His abdominal discomfort continues to improve and feels more like a muscle ache. On exam he is afebrile with stable vitals. His abdomen is soft, less distended, nontender. KUB reviewed and showed persistent dilation of the small bowel which given his history may be somewhat of a chronic finding. We will clamp his NG tube and if he tolerates and has minimal residuals likely remove this afternoon. He may start on clear liquids. We will slowly advance his diet to low fiber as tolerated over the next 24 to 48 hours. If he were to fail over the weekend, would recommend replacement the NG tube and a contrasted study on Monday or Monday. Dr. Don covering over the weekend. Subjective Patient says he is passing flatus still this AM and had a BM. Nausea related to phlegm and NGT. Abdominal pain is minimal. Physical Exam Physical Exam: awake/alert Constitutional: no acute distress Gastrointestinal (Abdomen): Percussion/Palpation: + abdomen tender (mild discomfort to palpation over L scar) and abdomen soft NGT 100cc documented, clear/pinkish output Results & Data ([facility]) Vital Signs (Past 12 Hours) Vital Signs Temp Pulse Resp BP Pulse Ox 10/29/20 22:26 37.3 C 62 16 107/69 95 PG Care Time/CCT Total # of Minutes Spent Total Time Spent with Patient: Total time spent is greater than 50% in coordination of care (as documented) at patient's floor/unit and/or counseling patient: Coding Level of Care Code 62530 Subseq Hosp Care Lvl 1 Diagnoses Small bowel obstruction K56.609
[2020-10-30] MEDS: POTASSIUM CHLORIDE 10 MEQ in D5W AND 1/2NSS 1,000 ML IV SCH ×2 (08:42→18:56)
--- NOTE | 2020-10-30 08:43 | XRay Report ---
KUB HISTORY: Follow up study in a patient with small bowel distention eval bowel gas pattern. sbo w ngt COMPARISON: KUB 10/29/2020, CT abdomen pelvis 10/27/2020 FINDINGS: An enteric tube is coiled over the gastric fundus. There is persistent small bowel dilation of the central abdomen measuring up to 3.9 cm which appears generally stable from comparison. Punct ate right renal calculus. No ureteral calculi. No pneumoperitoneum or pneumatosis. Mid lumbar levosco liosis. Posterior interbody ashlyn and screw fusion of the thoracolumbar spine. Prior median sternotomy. No fracture. IMPRESSION: 1. Unchanged appearance of the persistent small bowel obstruction. 2. Unchanged positioning of the enteric tube projected over the gastric fundus. 3. Punctate right renal calculus. ACT 112: Negative or not required by law. The above report was generated using voice recognition software. It may contain grammatical, syntax o r spelling errors. Electronically signed by: Pavan Gonzalez M.D. 10/30/2020 8:41 AM
[2020-10-31] MEDS: POTASSIUM CHLORIDE 10 MEQ in D5W AND 1/2NSS 1,000 ML IV SCH ×2 (05:39→15:37)
--- NOTE | 2020-10-31 09:56 | Surgery Progress Note ---
Date of Service October 31, 2020 Assessment & Plan (1) Small bowel obstruction: Appears to be slowly improving but persistent distention and changes on xray are concerning. Will go slowly and advance to full liquids only today. Increase activity as tolerated. Present on Admission?: Yes Admission and Anticipated Discharge Date Admission Date: October 27, 2020 Subjective Sitting up in bed. States he has tolerated the liquids with no nausea but still feels bloated. Passing flatus and has had two bowel movements. No crampy abdominal pain but still "uncomfortable". Wondering if this will continue to happen in future. Wants to smoke a cigarette - not interested in nicotine patch. Review of Systems Review of Systems: All systems reviewed & are unremarkable except as noted in HPI & below Physical Exam Constitutional: WD/WN, vitals as above Respiratory: normal respiratory effort, lungs clear to auscultation Cardiovascular: RRR, no murmur, no edema Gastrointestinal (Abdomen): Inspection/Auscultation: abdomen normal to inspection, + abdomen distended (moderate) and normal bowel sounds Percussion/Palpation: + abdomen tender (mild) and abdomen soft; no guarding Neurologic: moves all extremities and awake; no focal motor deficits Psychiatric: A+Ox3, euthymic affect Results & Data ([facility]) Vital Signs (Past 12 Hours) Vital Signs Temp Pulse Resp BP Pulse Ox 10/31/20 07:34 37.2 C 67 16 124/78 95 10/30/20 22:56 37.2 C 76 16 121/81 96 Diagnostic Findings AXR yesterday was unchanged with persistent SBO
[2020-11-01] MEDS: POTASSIUM CHLORIDE 10 MEQ in D5W AND 1/2NSS 1,000 ML IV SCH (01:29)
--- NOTE | 2020-11-01 10:32 | Surgery Progress Note ---
Date of Service November 01, 2020 Assessment & Plan (1) Small bowel obstruction: SBO - appears to be improving. Advance to low fiber diet. He would like to go home if tolerates. Discharge ordered. Admission and Anticipated Discharge Date Admission Date: October 27, [address]. Feels well. Having bowel movements. Tolerating advancement of diet. No nausea. Occasional sharp pain but only lasts a second or two. Physical Exam Constitutional: WD/WN, vitals as above Respiratory: normal respiratory effort, lungs clear to auscultation Cardiovascular: RRR, no murmur, no edema Gastrointestinal (Abdomen): Inspection/Auscultation: abdomen normal to inspection, + abdomen distended (mild) and normal bowel sounds Percussion/Palpation: abdomen soft; abdomen nontender and no guarding Neurologic: moves all extremities and awake; no focal motor deficits Psychiatric: A+Ox3, euthymic affect Results & Data ([facility]) Vital Signs (Past 12 Hours) Vital Signs Temp Pulse Resp BP Pulse Ox 11/01/20 07:36 37.1 C 57 L 14 110/76 98
--- NOTE | 2020-11-05 13:57 | Discharge Summary ---
Date of Service November 05, 2020 Admission HPI Per Admitting Provider Is a 40-year-old male who presented [facility] emergency department secondary to periumbilical abdominal pain along with nausea and vomiting that began approximate 24 hours ago. Patient notes that he had a history of small bowel obstruction as an infant that required resection of a portion of the small bowel. He notes he has not had any other issues concerning this problem until his current presentation. Patient symptoms began approximate 24-hours ago as stated above. Patient notes that he has generalized achy abdominal pain in the periumbilical area that is alleviated when he self induces vomiting. He does note that the pain seems to be somewhat worse when he lies down and sits up. He notes that for the past 24 hours he has only had 1 small bowel movement and is not passing any flatus. He has not had any meaningful oral intake since yesterday. In the emergency department patient had labs and imaging which were independently reviewed by myself. CT scan of the abdomen showed concern for high-grade bowel obstruction with fecalization of material in the small bowel proximal to this obstruction. There is no evidence of free air, pneumatosis intestinalis, or portal venous gas. CBC reveals white blood cell count was 14, hemoglobin, hematocrit, and platelet count are all within normal range. Chemistry profile revealed his sodium is 134. Potassium level could not be ascertained as the specimen was hemolyzed. His BUN and creatinine were noted to be within normal range. A Covid test has been ordered and is pending. At the time of my exam the patient was resting in bed he was in no distress Principal Diagnosis small bowel obstruction Discharge Data Allergies Allergy/AdvReac Type Severity Reaction Status Date / Time morphine AdvReac Intermediate HALLUCINATI Verified 10/27/20 19:42 ONS Consultations 10/27/20 21:19 Consult General Surgery Stat 10/27/20 22:38 ED Decision to Admit Stat Ordered Studies 10/27/20 19:45 CT abd pelvis IV con only Stat Hospital Course (1) Small bowel obstruction: 40 y/o male with history of bowel resection admitted with small bowel obstruction. He was admitted for non operative management with and NG tube and bowel rest. Over the course of his hospital stay his abdominal pain improved, he had return of bowel function as evidenced by flatus and bowel movements. His NG tube was eventually clamped which was well tolerated and it was removed. He was advanced to to a low residual diet which he tolerated without incident. He was discharged to home with return precautions and follow up with PCP. At the time of discharge he was tolerating a diet, his pain was controlled, and the symptoms he presented with were significantly improved. Total Time Total Time Spent Total Time Spent (In Minutes): 45 Discharge Plan Discharge Items Patient Disposition: Home - Self-Care Reason For Visit: SBO Discharge Diagnosis: small bowel obstruction Activity: Per Instructions section Lifting: Gradually increase as tolerated Bathing: No limitations Exercise/Sports: Gradually increase as tolerated Driving/Machine Use: No limitations Non-emergency contact: Primary Care Provider and Surgeon Call non-emergency contact if: you have any medication questions, your symptoms worsen, your pain is not controlled, your pain is concerning for you, you have a fever and your temperature is above 101.5 Follow-up/Referrals: Edmar Grijalva, KUN MANDEL [Physician] - (You do not need to schedule a follow up appointment with surgery. You may call the office with any questions/concerns) PCP,NO [Primary Care Provider] - Diet: Low Fiber Addtl Attending Provider Instructions: Pending Studies at Discharge: No Stand-Alone Forms: My [employer], Opioid Pain Management, Work/School Release, Smoking Cessation Medications and DC Order Prescriptions: Continued ibuprofen 200 mg Tablet 400 mg PO Q6H PRN (Reason: Pain) RF: 0 Multivitamin Gummies 200 mcg Tablet,Chewable 1 tab PO DAILY RF: 0 Discharge Orders: Discharge Order (Routine); Ordered 11/01/20 Ordered By: Mariia Gonzalez/Other Patient Handouts: Low-Fiber Diet Admission Data Admit Date/Time: 10/27/20 22:20 Attending Provider: Edmar Grijalva Admit Provider: Edmar Grijalva Primary Care Provider: PCP,NO Other Providers: Edmar Grijalva Other Interventions: Discharge Summary Assessment (RN) Last Done: 11/01/20 12:21 Coding Level of Care Code D/C Day Management >30 mins Diagnoses Small bowel obstruction K56.609
== END 2020-11-01 15:01 | disposition home or self-care (01) | DRG 390 ==
LOC: ED 17:10 → 3E 22:20